=== PATIENT | female | born 1995 ===

== ENCOUNTER 2021-08-16 14:51 | Emergency (ER) | payer MEDICAID, OTHER ==
[~2021-08-16] VITALS: Ht 167.6 cm; Wt 136.1 kg
[2021-08-16] MEDS ORDERED: LEVO-28 PO (17:31)
[2021-08-16] MEDS ORDERED: DEXA6TAB PO (17:31)
[2021-08-16 18:05] VITALS: BP 134/80
== END 2021-08-16 18:13 | disposition home or self-care (01) ==
LOC: EDBD 14:51 → ER 14:51
DX: U07.1 COVID-19 (principal)
CPT/HCPCS: 36415; 71046; 87426

== ENCOUNTER 2021-08-23 06:27 | Inpatient (IN) | payer MEDICAID ==
[~2021-08-23] VITALS: Ht 170.2 cm; Wt 129.7 kg
[~2021-08-23 06:27] MED LIST: DEXA6TAB PO; LEVO-28 PO
[2021-08-23 11:11] LABS: Basophils # (auto) 0 10 ^3/uL (0-0.2); Basophils % (auto) 0.8 % (0.0-2.0); Eosinophils # (auto) 0 10 ^3/uL (0-0.8); Eosinophils % (auto) 0.1 % (0.0-7.0); Hematocrit 40.1 % (36.0-46.0); Hemoglobin 13.4 g/dL (12.2-16.2); Lymphocytes # (auto) 0.9 10 ^3/uL (0.4-5.4); Lymphocytes % (auto) 32.3 % (10.0-50.0); Mean Corpuscular Hemoglobin 27.1 pg (28.0-32.0); Mean Corpuscular Hgb Conc. 33.5 g/dL (32.0-36.0); Mean Corpuscular Volume 80.9 fL (80.0-100.0); Monocytes # (auto) 0.2 10 ^3/uL (0-1.3); Monocytes % (auto) 7.8 % (0.0-12.0); Neutrophils # (auto) 1.7 10 ^3/uL (1.6-8.6); Nucleated Red Blood Cells % 0.2 %; Red Blood Cells 4.96 10^6/uL (4.0-5.20); Red Cell Distribution Width 15.8 % (11.8-14.3); White Blood Cell 2.8 10^3/uL (4.4-10.8)
[2021-08-23 11:23] LABS: Potassium 3.5 mmol/L (3.5-5.1)
[2021-08-23 11:30] LABS: Albumin 3.2 g/dL (3.4-5.0); BUN/Creatinine Ratio 10.5; Bilirubin, Total 0.4 mg/dL (0.2-1.0); Calcium 7.4 mg/dL (8.5-10.1); Total Protein 7.2 g/dL (6.4-8.2)
[2021-08-23] MEDS ORDERED: cefTRIAXone 1GM/50ML D5W 50 ML IV ONE (11:30)
[2021-08-23] MEDS ORDERED: AZITHROMYCIN 500MG/ 250ML 250 ML IV ONE (11:30)
[2021-08-23] MEDS ORDERED: DexAMETHasone SOD PHOS 10MG/1ML VIAL INJ IV ONE (11:30)
[2021-08-23 12:50] LABS: Urine Bacteria NONE SEEN /hpf (None Seen); Urine Blood 3+ /uL (Negative); Urine Mucus FEW (None Seen); Urine Specific Gravity 1.024 (1.001-1.035)
[2021-08-23 13:13] LABS: Urine WBC 89 /hpf (0 - 5)
[2021-08-23] MEDS ORDERED: ONDANSETRON HCL 4 MG/2 ML VIAL IV PRN (17:00)
[2021-08-23] MEDS ORDERED: DOCUSATE SOD 100 MG CAP PO PRN (17:00)
[2021-08-23] MEDS ORDERED: NITROGLYCERIN 0.4 MG SL TAB SL PRN (17:00)
[2021-08-23] MEDS ORDERED: MORPHINE SULFATE INJECTION 2 MG/ML SYRG IV PRN (17:00)
[2021-08-23] MEDS ORDERED: MORPHINE SULFATE 4 MG/ML SYR/VIAL IV PRN (17:00)
[2021-08-23] MEDS: SODIUM CHLORIDE 0.9% 1,000 ML IV SCH (18:20)
[2021-08-23] MEDS ORDERED: HYDROcodone-ACET 5/325MG TAB PO PRN (18:30)
[2021-08-23 23:55] VITALS: BP 111/67
[2021-08-24] VITALS: BP 111/67
[2021-08-24] MEDS: ASCORBIC ACID 500 MG TAB PO SCH ×3 (00:37→21:41)
[2021-08-24] MEDS ORDERED: AZIT250T9 PO (04:34)
[2021-08-24] MEDS ORDERED: PROM2SYP2 PO (04:34)
[2021-08-24 05:10] VITALS: BP 110/68
[2021-08-24 06:59] LABS: Basophils # (auto) 0 10 ^3/uL (0-0.2); Basophils % (auto) 0.4 % (0.0-2.0); Eosinophils # (auto) 0 10 ^3/uL (0-0.8); Hematocrit 40.3 % (36.0-46.0); Hemoglobin 13.6 g/dL (12.2-16.2); Lymphocytes # (auto) 0.9 10 ^3/uL (0.4-5.4); Lymphocytes % (auto) 38.3 % (10.0-50.0); Mean Corpuscular Hemoglobin 27.3 pg (28.0-32.0); Mean Corpuscular Hgb Conc. 33.8 g/dL (32.0-36.0); Mean Corpuscular Volume 80.9 fL (80.0-100.0); Monocytes # (auto) 0.2 10 ^3/uL (0-1.3); Monocytes % (auto) 9.3 % (0.0-12.0); Neutrophils # (auto) 1.2 10 ^3/uL (1.6-8.6); Nucleated Red Blood Cells % 0.2 %; Red Blood Cells 4.99 10^6/uL (4.0-5.20); Red Cell Distribution Width 15.6 % (11.8-14.3); White Blood Cell 2.3 10^3/uL (4.4-10.8)
[2021-08-24 07:34] LABS: Potassium 3.5 mmol/L (3.5-5.1)
[2021-08-24 08:00] VITALS: BP 113/72
[2021-08-24 08:03] LABS: BUN/Creatinine Ratio 13.4; Bilirubin, Total 0.3 mg/dL (0.2-1.0); Calcium 7.7 mg/dL (8.5-10.1); Total Protein 7.2 g/dL (6.4-8.2)
[2021-08-24] MEDS: cefTRIAXone 1GM/50ML D5W 50 ML IV SCH (09:13)
[2021-08-24] MEDS: DexAMETHasone SOD PHOS 10MG/1ML VIAL INJ IV SCH (09:13)
[2021-08-24] MEDS: SODIUM CHLORIDE 0.9% 1,000 ML IV SCH (09:13)
[2021-08-24] MEDS: CHOLECALCIFEROL (VITD3) 2,000 UNIT CAP/TAB PO SCH (09:13)
[2021-08-24] MEDS: ZINC SULFATE 220mg CAP or TAB PO SCH (09:13)
[2021-08-24] MEDS: ENOXAPARIN SOD 40 MG/0.4 ML SYRINGE SC SCH (09:13)
[2021-08-24] MEDS: AZITHROMYCIN 500MG/ 250ML 250 ML IV SCH (10:18)
[2021-08-24 13:00] VITALS: BP 125/84
[2021-08-24 16:00] VITALS: BP 116/59
[2021-08-24 22:00] VITALS: BP 119/84
[2021-08-25] MEDS: SODIUM CHLORIDE 0.9% 1,000 ML IV SCH ×2 (02:37→19:00)
[2021-08-25 05:00] VITALS: BP 127/78
[2021-08-25 08:00] VITALS: BP 121/62
[2021-08-25] MEDS: cefTRIAXone 1GM/50ML D5W 50 ML IV SCH (08:43)
[2021-08-25] MEDS: ENOXAPARIN SOD 40 MG/0.4 ML SYRINGE SC SCH (08:43)
[2021-08-25] MEDS: ACETAMINOPHEN 325 MG TAB PO PRN (08:43)
[2021-08-25] MEDS: CHOLECALCIFEROL (VITD3) 2,000 UNIT CAP/TAB PO SCH (08:43)
[2021-08-25] MEDS: ASCORBIC ACID 500 MG TAB PO SCH ×2 (08:43→20:50)
[2021-08-25] MEDS: ZINC SULFATE 220mg CAP or TAB PO SCH (08:43)
[2021-08-25] MEDS: DexAMETHasone SOD PHOS 10MG/1ML VIAL INJ IV SCH (08:43)
[2021-08-25] MEDS: AZITHROMYCIN 500MG/ 250ML 250 ML IV SCH (09:31)
[2021-08-25 13:00] VITALS: BP 119/78
[2021-08-25 17:00] VITALS: BP 119/71
[2021-08-25 19:16] LABS: Basophils # (auto) 0 10 ^3/uL (0-0.2); White Blood Cell 2.2 10^3/uL (4.4-10.8)
[2021-08-25 19:17] LABS: Basophils % (auto) 0.3 % (0.0-2.0); Eosinophils # (auto) 0 10 ^3/uL (0-0.8); Eosinophils % (auto) 0.1 % (0.0-7.0); Hematocrit 36.3 % (36.0-46.0); Hemoglobin 12.2 g/dL (12.2-16.2); Lymphocytes # (auto) 0.6 10 ^3/uL (0.4-5.4); Lymphocytes % (auto) 28.8 % (10.0-50.0); Mean Corpuscular Hgb Conc. 33.5 g/dL (32.0-36.0); Mean Corpuscular Volume 80.7 fL (80.0-100.0); Monocytes # (auto) 0.3 10 ^3/uL (0-1.3); Monocytes % (auto) 12.9 % (0.0-12.0); Neutrophils # (auto) 1.3 10 ^3/uL (1.6-8.6); Neutrophils % (auto) 57.9 % (37.0-80.0); Nucleated Red Blood Cells % 0.3 %; Red Cell Distribution Width 15.7 % (11.8-14.3)
[2021-08-25 19:28] LABS: BUN/Creatinine Ratio 13.7; Calcium 7.8 mg/dL (8.5-10.1); Potassium 3.9 mmol/L (3.5-5.1)
[2021-08-25 22:00] VITALS: BP 139/91
[2021-08-26] MEDS: SODIUM CHLORIDE 0.9% 1,000 ML IV SCH (03:40)
[2021-08-26 05:00] VITALS: BP 134/86
[2021-08-26 07:22] LABS: Basophils # (auto) 0 10 ^3/uL (0-0.2); Basophils % (auto) 0.3 % (0.0-2.0); Eosinophils # (auto) 0 10 ^3/uL (0-0.8); Hematocrit 35.2 % (36.0-46.0); Hemoglobin 11.7 g/dL (12.2-16.2); Lymphocytes # (auto) 1.1 10 ^3/uL (0.4-5.4); Lymphocytes % (auto) 35.1 % (10.0-50.0); Mean Corpuscular Hemoglobin 27.1 pg (28.0-32.0); Mean Corpuscular Hgb Conc. 33.3 g/dL (32.0-36.0); Mean Corpuscular Volume 81.4 fL (80.0-100.0); Monocytes # (auto) 0.4 10 ^3/uL (0-1.3); Monocytes % (auto) 12.1 % (0.0-12.0); Neutrophils # (auto) 1.7 10 ^3/uL (1.6-8.6); Neutrophils % (auto) 52.5 % (37.0-80.0); Nucleated Red Blood Cells % 0.1 %; Red Blood Cells 4.33 10^6/uL (4.0-5.20); Red Cell Distribution Width 15.5 % (11.8-14.3); White Blood Cell 3.1 10^3/uL (4.4-10.8)
[2021-08-26 07:31] LABS: Potassium 3.3 mmol/L (3.5-5.1)
[2021-08-26 07:36] LABS: BUN/Creatinine Ratio 11.7; Calcium 7.9 mg/dL (8.5-10.1)
[2021-08-26 08:11] VITALS: BP 110/66
[2021-08-26] MEDS: cefTRIAXone 1GM/50ML D5W 50 ML IV SCH (09:03)
[2021-08-26] MEDS: DexAMETHasone SOD PHOS 10MG/1ML VIAL INJ IV SCH (09:04)
[2021-08-26] MEDS: ENOXAPARIN SOD 40 MG/0.4 ML SYRINGE SC SCH (09:04)
[2021-08-26] MEDS: ASCORBIC ACID 500 MG TAB PO SCH ×2 (09:04→20:25)
[2021-08-26] MEDS: ZINC SULFATE 220mg CAP or TAB PO SCH (09:04)
[2021-08-26] MEDS: CHOLECALCIFEROL (VITD3) 2,000 UNIT CAP/TAB PO SCH (09:04)
[2021-08-26] MEDS ORDERED: POTASSIUM CHL 20 Meq TABLET PO ONE (09:15)
[2021-08-26] MEDS: AZITHROMYCIN 500MG/ 250ML 250 ML IV SCH (10:37)
[2021-08-26] MEDS ORDERED: REMDESIVIR PER PHARMACY 0 ML IV SCH (11:15)
[2021-08-26 13:00] VITALS: BP 146/85
[2021-08-26 16:00] VITALS: BP 149/95
[2021-08-26] MEDS: POTASSIUM CHL 10MEQ/50ML 50 ML IV SCH ×2 (18:37→21:27)
[2021-08-26] MEDS ORDERED: REMDESIVIR 200 MG in NS 210ml LOADING DOSE ADULT IV ONE (20:00)
[2021-08-26] MEDS: ACETAMINOPHEN 325 MG TAB PO PRN (20:25)
[2021-08-26 22:00] VITALS: BP 140/84
[2021-08-27] MEDS: SODIUM CHLORIDE 0.9% 1,000 ML IV SCH ×2 (04:30→21:00)
[2021-08-27 05:00] VITALS: BP 132/74
[2021-08-27 07:09] LABS: Basophils # (auto) 0 10 ^3/uL (0-0.2); Basophils % (auto) 0.2 % (0.0-2.0); Eosinophils # (auto) 0 10 ^3/uL (0-0.8); Eosinophils % (auto) 0.1 % (0.0-7.0); Lymphocytes # (auto) 1.3 10 ^3/uL (0.4-5.4); Red Blood Cells 4.36 10^6/uL (4.0-5.20)
[2021-08-27 07:11] LABS: Hematocrit 35.6 % (36.0-46.0); Hemoglobin 11.8 g/dL (12.2-16.2); Lymphocytes % (auto) 41.6 % (10.0-50.0); Mean Corpuscular Volume 81.8 fL (80.0-100.0); Nucleated Red Blood Cells % 0.4 %; Red Cell Distribution Width 15.3 % (11.8-14.3); White Blood Cell 3.1 10^3/uL (4.4-10.8)
[2021-08-27 07:19] LABS: Potassium 3.6 mmol/L (3.5-5.1)
[2021-08-27 07:23] LABS: Albumin 2.6 g/dL (3.4-5.0); BUN/Creatinine Ratio 10.9; Calcium 7.8 mg/dL (8.5-10.1)
[2021-08-27 07:26] LABS: Bilirubin, Total 0.3 mg/dL (0.2-1.0); Total Protein 6.6 g/dL (6.4-8.2)
[2021-08-27 07:59] LABS: Monocytes # (auto) 0.5 10 ^3/uL (0-1.3); Monocytes % (auto) 17.4 % (0.0-12.0); Neutrophils # (auto) 1.3 10 ^3/uL (1.6-8.6); Neutrophils % (auto) 40.7 % (37.0-80.0)
[2021-08-27 08:00] VITALS: BP 146/92
[2021-08-27] MEDS: ASCORBIC ACID 500 MG TAB PO SCH ×2 (08:12→21:22)
[2021-08-27] MEDS: cefTRIAXone 1GM/50ML D5W 50 ML IV SCH (08:12)
[2021-08-27] MEDS: DexAMETHasone SOD PHOS 10MG/1ML VIAL INJ IV SCH (08:12)
[2021-08-27] MEDS: ZINC SULFATE 220mg CAP or TAB PO SCH (08:12)
[2021-08-27] MEDS: ENOXAPARIN SOD 40 MG/0.4 ML SYRINGE SC SCH (08:13)
[2021-08-27] MEDS: CHOLECALCIFEROL (VITD3) 2,000 UNIT CAP/TAB PO SCH (08:13)
[2021-08-27] MEDS: AZITHROMYCIN 500MG/ 250ML 250 ML IV SCH (09:01)
[2021-08-27 12:51] VITALS: BP 143/95
[2021-08-27] MEDS: REMDESIVIR 100mg 100 MG in SODIUM CHL 0.9% 230 ML IV SCH (15:55)
[2021-08-27 16:00] VITALS: BP 144/86
[2021-08-27] MEDS: ACETAMINOPHEN 325 MG TAB PO PRN (21:22)
[2021-08-28] VITALS: BP 145/86
[2021-08-28] MEDS: SODIUM CHLORIDE 0.9% 1,000 ML IV SCH (06:38)
[2021-08-28 07:21] LABS: Basophils # (auto) 0 10 ^3/uL (0-0.2); Basophils % (auto) 0.4 % (0.0-2.0); Eosinophils # (auto) 0 10 ^3/uL (0-0.8); Eosinophils % (auto) 0.6 % (0.0-7.0); Hematocrit 38.6 % (36.0-46.0); Hemoglobin 12.8 g/dL (12.2-16.2); Lymphocytes # (auto) 1.3 10 ^3/uL (0.4-5.4); Lymphocytes % (auto) 38.1 % (10.0-50.0); Mean Corpuscular Volume 81.7 fL (80.0-100.0); Monocytes # (auto) 0.7 10 ^3/uL (0-1.3); Monocytes % (auto) 18.9 % (0.0-12.0); Neutrophils # (auto) 1.5 10 ^3/uL (1.6-8.6); Nucleated Red Blood Cells % 0.2 %; Potassium 3.7 mmol/L (3.5-5.1); Red Blood Cells 4.72 10^6/uL (4.0-5.20); Red Cell Distribution Width 15.5 % (11.8-14.3); White Blood Cell 3.5 10^3/uL (4.4-10.8)
[2021-08-28 07:29] LABS: Albumin 2.8 g/dL (3.4-5.0); BUN/Creatinine Ratio 15.9; Bilirubin, Total 0.4 mg/dL (0.2-1.0); Calcium 8.1 mg/dL (8.5-10.1); Total Protein 6.9 g/dL (6.4-8.2)
[2021-08-28 08:00] VITALS: BP 117/78
[2021-08-28] MEDS: cefTRIAXone 1GM/50ML D5W 50 ML IV SCH (09:54)
[2021-08-28] MEDS: DexAMETHasone SOD PHOS 10MG/1ML VIAL INJ IV SCH (09:54)
[2021-08-28] MEDS: ZINC SULFATE 220mg CAP or TAB PO SCH (09:55)
[2021-08-28] MEDS: ASCORBIC ACID 500 MG TAB PO SCH (09:55)
[2021-08-28] MEDS: CHOLECALCIFEROL (VITD3) 2,000 UNIT CAP/TAB PO SCH (09:55)
[2021-08-28] MEDS: ENOXAPARIN SOD 40 MG/0.4 ML SYRINGE SC SCH (09:55)
[2021-08-28] MEDS: AZITHROMYCIN 500MG/ 250ML 250 ML IV SCH (12:38)
[2021-08-28 12:54] VITALS: BP 152/81
[2021-08-28] MEDS ORDERED: DEXA6TAB PO (14:48)
[2021-08-28] MEDS ORDERED: ZINC220T6 PO (14:48)
[2021-08-28] MEDS ORDERED: ASCO500T11 PO (14:48)
[2021-08-28] MEDS ORDERED: CHOL1CAP47 PO (14:48)
[2021-08-28] MEDS: REMDESIVIR 100mg 100 MG in SODIUM CHL 0.9% 230 ML IV SCH (15:00)
[2021-08-28 16:00] VITALS: BP 109/64
[2021-08-28 17:07] VITALS: BP 132/78
== END 2021-08-28 18:40 | disposition home health service (06) | DRG 137 ==
LOC: ER 06:27 → EDBD 06:27 → TELE 16:54 → TELE-WESTW 23:22
PROVIDERS: ADMIT Internal Medicine; ATTEND Internal Medicine
PROC: XW033E5 Introduction of Remdesivir Anti-infective into Peripheral Vein, Percutaneous Approach, New Technology Group 5 (ICD-10-PCS; principal; 2021-08-26)
DX: U07.1 COVID-19 (principal); J96.01 Acute respiratory failure with hypoxia; J12.82 Pneumonia due to coronavirus disease 2019; E86.0 Dehydration; E83.51 Hypocalcemia; E88.09 Other disorders of plasma-protein metabolism, not elsewhere classified; N39.0 Urinary tract infection, site not specified; D72.819 Decreased white blood cell count, unspecified; J98.11 Atelectasis; Z82.49 Family history of ischemic heart disease and other diseases of the circulatory system; Z23 Encounter for immunization
CPT/HCPCS: 36415; 36600; 71045; 74176; 80048; 80053; 81001; 81025; 82728; 82805; 85025; 86141; 87040; 87081; 96365; 96368; 96375; 99291; G0378; J0696; J1100; J2405